=== PATIENT | male | born 1960 | race Caucasian/White ===

== ENCOUNTER 2022-04-27 08:47 | Observation (INO) | payer MEDICARE ==
[2022-04-27] VITALS (17 sets, daily range): BP systolic 121–166; BP diastolic 65–112
[~2022-04-27] VITALS: Ht 182.9 cm; Wt 77.0 kg
[~2022-04-27 08:47] MED LIST: ALLOPURINOL300 MG; ALLOPURINOL300 MG PO; AMLODIPINE10 MG; ASPIRIN LOW DOS81 M2 PO; CYMBALTA30 MG PO; FLEXERIL; GABAPENTIN300 MG; LISINOPRIL20 M1; LISINOPRIL20 M1 PO; LOPID600 MG; LOPID600 MG PO; LOPRESSOR 550 MG/TAB; LOPRESSOR25 MG PO; NEURONTIN300 MG PO; OMEGA; PLETAL50 MG; PRAVACHOL20 MG; ULTRAM50 M1; [UNRECOGNIZED DRUG - OTHER]; [UNRECOGNIZED DRUG - OTHER]
--- NOTE | 2022-04-27 08:52 | NUR ---
PT IN ROOM VIA WHEELCHAIR.
[2022-04-27 09:11] LABS: HEMATOCRIT 38.7 % (39.0-50.0); HEMOGLOBIN 13.1 g/dl (14.0-18.0); IMMATURE GRANULOCYTES 0.3 % (0.0-5.0); MEAN CELL VOLUME 106.6 fL CALC (80.0-100.0); MEAN CORPUSCULAR HGB 36.1 pG CALC (26.0-32.0); MEAN CORPUSCULAR HGB CONC 33.9 g/dL CAL (32.0-36.0); NEUT# 10.54 thou/uL (1.82-7.42); RED BLOOD COUNT 3.63 mill/uL (4.70-6.10)
[2022-04-27 09:27] LABS: ALBUMIN 4.2 g/dL (3.2-5.0); BILIRUBIN, TOTAL 0.4 mg/dL (0.0-1.4); CREATININE 1.9 mg/dL (0.7-1.3); POTASSIUM 4.9 mmol/l (3.5-5.1); TOTAL PROTEIN 7.6 g/dL (6.3-8.2)
--- NOTE | 2022-04-27 09:30 | NUR ---
Reassessment of patient completed. No distress noted.
--- NOTE | 2022-04-27 10:12 | NUR ---
Reassessment of patient completed. No distress noted. SECOND BAG OF FLUIDS ARE RUNNING
--- NOTE | 2022-04-27 12:07 | NUR ---
PT TRANSPORTED TO [place] VIA STRETCHER, NO DISTRESS. BEDSIDE REPORT GIVEN TO RN.
--- NOTE | 2022-04-27 12:20 | NUR ---
PT AMBULATED TO BATHROOM. PT NOW RESTING IN LOW FOWLERS POSITION.ASSESSMENT AND VS COMPLETED. HEART RHYTHM NORMAL. RESPIRATIONS ON ROOM AIR BOWELS SOUNDS HYPOACTIVE. PT IV SITE TO RAC NS TO BE INFUSED. PT DENIES WOUNDS AT THE TIME. ALL SAFETY PRECAUTIONS IN PLACE.
--- NOTE | 2022-04-27 16:00 | NUR ---
PT C/O OF WEAKNESS. PT STATES UNABLE TO COVER HIM SELF WITH BLANKETS STATES NEEDS HELP . STEPPED OUT OF ROOM TO SEE IF AID WAS ABLE TO PROVIDE WATER WHILE MED PASS WAS TO BE PROVIDED. PT COVERED SELF WITH BLANKETS.
[2022-04-27 16:24] LABS: URINE BILIRUBIN - DIPSTICK NEGATIVE (NEGATIVE); URINE BLOOD DIPSTICK NEGATIVE (NEGATIVE); URINE COLOR YELLOW; URINE GLUCOSE - DIPSTICK NEGATIVE (NEGATIVE); URINE KETONE NEGATIVE (NEGATIVE); URINE LEUK ESTERASE NEGATIVE (NEGATIVE); URINE PROTEIN - DIPSTICK NEGATIVE (NEG-TRACE); URINE SPECIFIC GRAVITY 1.025; URINE UROBILINOGEN - DIPSTICK 0.2 E.U./dL (0.2)
[2022-04-27 16:26] LABS: URINE NITRITE - DIPSTICK NEGATIVE (Negative)
--- NOTE | 2022-04-27 19:00 | NUR ---
RECEIVED REPORT FROM SOLIS GILES.
[2022-04-28] VITALS (8 sets, daily range): BP systolic 104–144; BP diastolic 57–89
--- NOTE | 2022-04-28 00:15 | NUR ---
PT STATES: " I NEED A SLEEPING PILL, I'M HAVING A HARD TIME FALLING ASLEEP." ADMINISTERED SLEEPING PILL PER EMAR. NO DISTRESS OR PAIN NOTED. IV SITE HEALTHY AND PATENT, INFUSING FLUIDS PER ORDER. SAFETY PRECAUTIONS IN PLACE WITH CALL LIGHT IN REACH.
--- NOTE | 2022-04-28 04:05 | NUR ---
PT RESTING WITH EYES CLOSED. NO DISTRESS OR PAIN NOTED. IV SITE HEALTHY AND PATENT, INFUSING FLUIDS PER ORDER. SAFETY PRECAUTIONS IN PLACE WITH CALL LIGHT IN REACH.
[2022-04-28 05:32] LABS: HEMATOCRIT 33.6 % (39.0-50.0); HEMOGLOBIN 11.3 g/dl (14.0-18.0); IMMATURE GRANULOCYTES 0.3 % (0.0-5.0); MEAN CELL VOLUME 108.4 fL CALC (80.0-100.0); MEAN CORPUSCULAR HGB 36.5 pG CALC (26.0-32.0); MEAN CORPUSCULAR HGB CONC 33.6 g/dL CAL (32.0-36.0); NEUT# 7.45 thou/uL (1.82-7.42); RED BLOOD COUNT 3.1 mill/uL (4.70-6.10); RED CELL DISTRI WIDTH 14.1 % (11.5-15.5)
[2022-04-28 05:54] LABS: ANION GAP 13 (6-22 (CALC)); BUN 30 mg/dL (8-23); BUN/CREATININE RATIO 22 (12-20 (CALC)); CARBON DIOXIDE 21 mmol/l (22-30); CHLORIDE 111 mmol/l (95-108); CREATININE 1.4 mg/dL (0.7-1.3); GFR FOR AFR.AMER. > 60 ML/MIN (>=60 (CALC)); GFR OTHER RACES 51 ML/MIN (>=60 (CALC)); MAGNESIUM 1.3 mg/dL (1.6-2.3); POTASSIUM 5.1 mmol/l (3.5-5.1); SODIUM 139 mmol/l (137-146)
--- NOTE | 2022-04-28 07:21 | NUR ---
REPORT FROM JUAN ELY. ASSUMED PT CARE.
--- NOTE | 2022-04-28 11:05 | NUR ---
PT RESTING IN BED. NO APPARENT DISTRESS NOTED. PT DENIES ANY CURRENT WANTS OR NEEDS. CALL LIGHT WITHIN REACH. WILL CONTINUE TO MONITOR.
--- NOTE | 2022-04-28 15:36 | NUR ---
PT SITTING UP IN BED WATCHING TV. PT DENIES ANY PAIN OR DISCOMFORT. PT C/O EMESIS BUT DENIES NAUSEA. REQUEST FOR GINGERALE, PROVIDED AT THIS TIME. PT REFUSED ZOFRAN. IVF INFUSING WITHOUT DIFFICULTY. CALL LIGHT WITHIN REACH. WILL CONTINUE TO MONITOR.
--- NOTE | 2022-04-28 20:15 | NUR ---
RECEIVED REPORT FROM QUAN KEITH. PT SITTING ON BED LOW FOWLERS: A&O X3. EVEN AND UNLABORED RESPIRATIONS: CLEAR LUNG SOUNDS UPON AUSCULTATION. IV SITE HEALTHY AND PATENT. ACTIVE BOWEL SOUNDS X4 QUADRANTS. SAFETY PRECAUTIONS IN PLACE WITH CALL LIGHT IN REACH.
--- NOTE | 2022-04-29 00:15 | NUR ---
PT ASSISTED TO BATHROOM: MODERATE BROWN BM. PT BACK IN BED. HANGING SCHEDULED ABX, IV SITE HEALTHY AND PATETN. SAFETY PRECAUTIONS IN PLACE WITH CALL LIGHT IN REACH.
--- NOTE | 2022-04-29 04:16 | NUR ---
PT RESTING ON BED. PATIENT REGISTRATION SPECIALIST DRAWN BLOOD AT THIS TIME. NO DISTRESS OR PAIN NOTED. IV SITE HEALTHY AND PATENT. SAFETY PRECAUTIONS IN PLACE WITH CALL LIGHT IN REACH.
[2022-04-29 04:33] VITALS: BP 137/87
[2022-04-29 05:47] LABS: HEMATOCRIT 31.8 % (39.0-50.0); HEMOGLOBIN 10.7 g/dl (14.0-18.0); MEAN CELL VOLUME 108.2 fL CALC (80.0-100.0); MEAN CORPUSCULAR HGB 36.4 pG CALC (26.0-32.0); MEAN CORPUSCULAR HGB CONC 33.6 g/dL CAL (32.0-36.0); RED BLOOD COUNT 2.94 mill/uL (4.70-6.10); RED CELL DISTRI WIDTH 14.2 % (11.5-15.5)
[2022-04-29 06:19] LABS: ANION GAP 10 (6-22 (CALC)); BUN 24 mg/dL (8-23); BUN/CREATININE RATIO 18 (12-20 (CALC)); CARBON DIOXIDE 21 mmol/l (22-30); CHLORIDE 112 mmol/l (95-108); CREATININE 1.3 mg/dL (0.7-1.3); GFR FOR AFR.AMER. > 60 ML/MIN (>=60 (CALC)); GFR OTHER RACES 56 ML/MIN (>=60 (CALC)); POTASSIUM 4.4 mmol/l (3.5-5.1); SODIUM 139 mmol/l (137-146)
[2022-04-29 07:11] VITALS: BP 137/90
--- NOTE | 2022-04-29 08:00 | NUR ---
GOT REPORT FROM BATCH MAKER NURSE. PATIENT AWAKE IN BED, INTRODUCED MYSELF NEW ONCOMING NURSE. PATIENT ASSESSED, AOX3, PATIENT CURRENTLY ON ROOM AIR. PATIENT DOES NOT HAVE ANY CLOTHES ON BUT COMPLAINS OF BEING COLD. PATIENT ALREADY HAS BLANKETS AND ROOM TEMP IS AT THE HIGHEST. OFFERED TO HELP HIM GET DRESSED BUT REFUSED. PATIENT DENIES ANY SXS OF DISTRESS. BED ALARM ON, CALL LIGHT AND BEDSIDE TABLE WITH IN REACH. ADVISED TO CALL IF SHE NEEDS ANYTHING.
[2022-04-29] MEDS ORDERED: AMOX/K CLAV875 M1 PO (10:11)
--- NOTE | 2022-04-29 12:00 | NUR ---
PATIENT IS SITTING IN BED EATING LUNCH. PATIENT DENIES ANY SXS OF DISTRESS. BED ALARM ON, CALL LIGHT AND BEDSIDE TABLE WITH IN REACH. ADVISED TO CALL IF SHE NEEDS ANYTHING.
--- NOTE | 2022-04-29 13:37 | NUR ---
Discharge instructions given. Patient verbalizes understanding of same. Discharged in stable condition via Wheelchair to Home with family. All belongings sent with pt.
== END 2022-04-29 13:37 ==
LOC: ED 08:47 → ED-I 10:00 → ED 10:59 → MS2 11:00
PROVIDERS: Emergency Medicine; ADMIT Internal Medicine; ATTEND Internal Medicine
DX: N17.9 Acute kidney failure, unspecified (principal); E86.0 Dehydration; E87.20 Acidosis, unspecified; R63.4 Abnormal weight loss; D72.829 Elevated white blood cell count, unspecified; R62.7 Adult failure to thrive; I10 Essential (primary) hypertension; G62.9 Polyneuropathy, unspecified; F17.200 Nicotine dependence, unspecified, uncomplicated; M54.9 Dorsalgia, unspecified; G89.29 Other chronic pain; Z68.23 Body mass index [BMI] 23.0-23.9, adult; Z86.73 Personal history of transient ischemic attack (TIA), and cerebral infarction without residual deficits
CPT/HCPCS: J1650; J3475